=== PATIENT | female | born 1995 | race Caucasian/White ===

== ENCOUNTER 2018-06-13 18:20 | Inpatient (IN) | payer MEDICAID ==
[~2018-06-13] VITALS: Ht 157.5 cm; Wt 79.8 kg
[2018-06-13] MEDS ORDERED: TERBUTALINE 1 MG/ML VIAL SUBQ SCH (18:30)
[2018-06-13] MEDS ORDERED: LACTATED RINGERS 1,000 ML IV SCH (18:43)
[2018-06-13] MEDS ORDERED: IBUPROFEN 800 MG TAB PO PRN (18:45)
[2018-06-13] MEDS ORDERED: TERBUTALINE 1 MG/ML VIAL SUBQ ONE (18:56)
[2018-06-13 19:07] LABS: BASOPHILS % (AUTO) 0.3 % (0.0-2.0); EOSINOPHILS % (AUTO) 0.2 % (0.0-4.0); HEMATOCRIT 40.8 % (36-48); HEMOGLOBIN 13.5 g/dL (12.0-16.0); LYMPHOCYTES # (AUTO) 2.5 K/uL (2.5-16.5); LYMPHOCYTES % (AUTO) 27.2 % (20.5-51.1); MEAN CORPUSCULAR HEMOGLOBIN 30 pg (27-31); MEAN CORPUSCULAR HGB CONC 33 g/dL (33-37); MEAN CORPUSCULAR VOLUME 90.6 fL (80-94); MONOCYTES % (AUTO) 10.8 % (1.7-9.3); NEUTROPHILS # (AUTO) 5.7 K/uL (1.8-7.7); NEUTROPHILS % (AUTO) 61.5 % (42.2-75.2); PLATELET COUNT (AUTO) 160 K/uL (140-450); WHITE BLOOD COUNT (AUTO) 9.3 K/uL (4.8-10.8)
[2018-06-13] MEDS ORDERED: OXYTOCIN 10 UNITS/ML VIAL ONE ×3 (19:13→20:28)
[2018-06-13] MEDS ORDERED: MORPHINE PRES FREE 2 MG/2 ML 2 mL UD SYRINGE ONE (19:21)
[2018-06-13] MEDS ORDERED: fentaNYL 0.05 MG/ML VIAL ONE (19:21)
[2018-06-13] MEDS ORDERED: BUPIVACAINE/DEXT 0.75% SPINAL 2 ML AMP INJ ONE (19:21)
[2018-06-13] MEDS ORDERED: BUPIVACAINE-MPF 0.75% 10 ML VIAL INJ ONE (19:33)
[2018-06-13] MEDS ORDERED: ePHEDrine 50 MG/ML VIAL ONE (19:33)
[2018-06-13 19:44] LABS: ALBUMIN 2.8 g/dL (3.4-5.0); ANION GAP 18.2 (8-16); CARBON DIOXIDE 20.1 mmol/L (21-32); CREATININE 0.7 mg/dL (0.6-1.3); POTASSIUM 4.3 mmol/L (3.5-5.1); TOTAL BILIRUBIN 0.2 mg/dL (0.0-1.0)
[2018-06-13] MEDS ORDERED: diphenhydrAMINE 50 MG/ML VIAL IVP PRN (19:55)
[2018-06-13] MEDS ORDERED: NALBUPHINE 10 MG/ML AMP IVP PRN (19:55)
[2018-06-13] MEDS ORDERED: ONDANSETRON 4 MG/2 ML VIAL IVP PRN ×2 (19:55)
[2018-06-13] MEDS ORDERED: KETOROLAC 60 MG/2 ML VIAL IM PRN (19:55)
[2018-06-13] MEDS ORDERED: NALOXONE 0.4 MG/ML VIAL IVP PRN ×3 (19:55)
[2018-06-13] MEDS ORDERED: ONDANSETRON 4 MG/2 ML VIAL ONE (20:28)
[2018-06-13 20:57] VITALS: BP 136/65
[2018-06-13] MEDS ORDERED: TRIMETHOBENZAMIDE 200 MG/2 ML SYR IM PRN (22:40)
[2018-06-13] MEDS ORDERED: oxyCODONE/APAP 5/325 MG 1 TAB TAB PO PRN (22:40)
[2018-06-13] MEDS ORDERED: MEASLES, MUMPS, AND RUBELLA 1 VIAL SQVAC PRN (22:40)
[2018-06-13] MEDS ORDERED: SIMETHICONE 80 MG TAB.CHEW PO PRN (22:40)
[2018-06-13] MEDS ORDERED: TEMAZEPAM 15 MG CAP PO PRN (22:40)
[2018-06-13] MEDS ORDERED: METHYLERGONOVINE 0.2 MG/ML AMP IM PRN (22:40)
[2018-06-14 00:35] LABS: APPEARANCE,URINE CLOUDY (CLEAR); BILIRUBIN,URINE NEGATIVE (NEGATIVE); BLOOD, URINE 3+ (NEGATIVE); COLOR,URINE YELLOW (YELLOW); LEUKOCYTE ESTERASE ,URINE NEGATIVE (NEGATIVE); NITRITE, URINE NEGATIVE (NEGATIVE); UGLUCOSE NEGATIVE (NEGATIVE)
[2018-06-14 01:31] LABS: RBC,URINE TOO NUMEROUS TO COUN /HPF (0-5); WBC,URINE 0-5 (RARE) /HPF (0-5)
[2018-06-14] MEDS ORDERED: METHYLERGONOVINE 0.2 MG/ML AMP ONE (02:58)
[2018-06-14] MEDS ORDERED: CARBOPROST 250 MCG/ML AMP IM ONE (02:59)
[2018-06-14] MEDS ORDERED: HETASTARCH 6% 500 ML IV ONE ×2 (03:03→03:25)
[2018-06-14] MEDS ORDERED: MISOPROSTOL 200 MCG TAB ONE (03:07)
[2018-06-14] MEDS ORDERED: MORPHINE SULFATE 2 MG/ML SYR IVP ONE (03:13)
[2018-06-14] MEDS ORDERED: MORPHINE SULFATE 2 MG/ML SYR ONE (03:36)
[2018-06-14] MEDS ORDERED: OXYTOCIN 20 UNITS/LR PREMIX 1,000 ML IV ONE (03:38)
[2018-06-14] MEDS: OXYTOCIN 20 UNITS in LACTATED RINGERS 1,000 ML IV SCH ×2 (03:40→06:41)
[2018-06-14 03:47] LABS: HEMATOCRIT 28.3 % (36-48); HEMOGLOBIN 9.3 g/dL (12.0-16.0); MEAN CORPUSCULAR HEMOGLOBIN 30 pg (27-31); MEAN CORPUSCULAR HGB CONC 33 g/dL (33-37); MEAN CORPUSCULAR VOLUME 91.8 fL (80-94); PLATELET COUNT (AUTO) 133 K/uL (140-450); RED BLOOD CELL COUNT(AUTO) 3.08 MIL/uL (4.20-5.40); RED CELL DISTRIBUTION WIDTH 14.1 % (11.6-13.7)
[2018-06-14 04:01] LABS: WHITE BLOOD COUNT (AUTO) 16.8 K/uL (4.8-10.8)
[2018-06-14 04:02] LABS: LYMPHOCYTES % (MANUAL) 11 % (20-46); MONOCYTES % (MANUAL) 5 % (5-12)
[2018-06-14 06:22] LABS: BASOPHILS % (AUTO) 0.1 % (0.0-2.0); EOSINOPHILS % (AUTO) 0.1 % (0.0-4.0); HEMATOCRIT 23.8 % (36-48); HEMOGLOBIN 7.9 g/dL (12.0-16.0); LYMPHOCYTES % (AUTO) 8.5 % (20.5-51.1); MEAN CORPUSCULAR HEMOGLOBIN 30 pg (27-31); MEAN CORPUSCULAR HGB CONC 33 g/dL (33-37); MONOCYTES # (AUTO) 0.8 K/uL (0.8-1.0); MONOCYTES % (AUTO) 6.1 % (1.7-9.3); NEUTROPHILS # (AUTO) 10.5 K/uL (1.8-7.7); NEUTROPHILS % (AUTO) 85.2 % (42.2-75.2); PLATELET COUNT (AUTO) 107 K/uL (140-450); RED BLOOD CELL COUNT(AUTO) 2.59 MIL/uL (4.20-5.40); WHITE BLOOD COUNT (AUTO) 12.3 K/uL (4.8-10.8)
[2018-06-14] MEDS: FERROUS SULFATE 325 MG TABEC PO SCH ×2 (09:59→18:40)
--- NOTE | 2018-06-14 10:33 | NUR ---
PATIENT HAS BEEN SCREENED AND CATEGORIZED LOW NUTRITION RISK. PATIENT WILL BE SEEN WITHIN 7 DAYS OF ADMISSION. 06/20/[address]
[2018-06-14] MEDS: HYDROcodone/APAP 5/325 MG 1 TAB TAB PO PRN (20:41)
[2018-06-14] MEDS: DOCUSATE SOD/SENNA 50/8.6 MG 1 TAB PO SCH (20:43)
[2018-06-14] MEDS: IBUPROFEN 800 MG TAB PO PRN (23:44)
[2018-06-15] MEDS: FERROUS SULFATE 325 MG TABEC PO SCH ×3 (07:54→17:48)
[2018-06-15] MEDS: IBUPROFEN 800 MG TAB PO PRN ×2 (07:55→23:50)
[2018-06-15] MEDS ORDERED: SODIUM PHOSPHATE 118 ML ENEM RC PRN (12:00)
[2018-06-15] MEDS: BISACODYL 5 MG TABEC PO PRN (12:08)
[2018-06-15] MEDS: HYDROcodone/APAP 5/325 MG 1 TAB TAB PO PRN ×2 (15:49→15:50)
[2018-06-15] MEDS: DOCUSATE SOD/SENNA 50/8.6 MG 1 TAB PO SCH (21:37)
[2018-06-16] MEDS: FERROUS SULFATE 325 MG TABEC PO SCH (08:36)
[2018-06-16] MEDS: BISACODYL 5 MG TABEC PO PRN (08:36)
[2018-06-16] MEDS: HYDROcodone/APAP 5/325 MG 1 TAB TAB PO PRN (09:49)
== END 2018-06-16 14:45 | disposition home or self-care (01) | DRG 540 ==
LOC: MLD 18:20 → MFCC 21:20
PROVIDERS: ADMIT Obstetrics & Gynecology; ATTEND Obstetrics & Gynecology
PROC: 10D00Z1 Extraction of Products of Conception, Low, Open Approach (ICD-10-PCS; principal; 2018-06-16)
DX: O32.1XX0 Maternal care for breech presentation, not applicable or unspecified (principal); Z37.0 Single live birth; Z3A.37 37 weeks gestation of pregnancy
CPT/HCPCS: 36415; 80053; 81001; 85025; 86592; 86762; 86886; 86900; 86901; 86920; J0690; J1885; J2210; J2270; J2405; J2590; J3010; J3105; J3490; J7060; J7120